=== PATIENT | male | born 1980 | race African-American/Black ===

== ENCOUNTER 2017-08-22 15:22 | Emergency (ER) | payer OTHER ==
[2017-08-22 15:29] VITALS: BP 127/85
[2017-08-22] MEDS ORDERED: HYDROCODONE/ACETAMINOPHEN 5-325 MG 6 TAB/DSPK PO PRN (16:34)
--- NOTE | 2017-08-22 16:44 | RADIOLOGY REPORT (SQ) ---
EXAM DESCRIPTION: SHOULDER LEFT 2 OR MORE VIEWS COMPLETED DATE/TIME: 08/22/2017 4:30 pm REASON FOR STUDY: fall COMPARISON: None. NUMBER OF VIEWS: Three views. TECHNIQUE: Internal rotation, external rotation, and Y view images acquired of the left shoulder. LIMITATIONS: None. FINDINGS: MINERALIZATION: Normal. BONES: No acute fracture or dislocation. No worrisome bone lesions. JOINTS: No dislocation. VISUALIZED LUNGS AND RIBS: No pneumothorax. No rib fracture. SOFT TISSUES: No radiopaque foreign body. OTHER: No other significant finding. IMPRESSION: NEGATIVE STUDY OF THE LEFT SHOULDER. NO RADIOGRAPHIC EVIDENCE OF ACUTE INJURY. TECHNICAL DOCUMENTATION: JOB ID: [id number] [employer]- All Rights Reserved
--- NOTE | 2017-08-22 17:04 | RADIOLOGY REPORT (SQ) ---
EXAM DESCRIPTION: CERV SP 3 VIEW OR LESS COMPLETED DATE/TIME: 08/22/2017 4:53 pm REASON FOR STUDY: fall from ladder 6 ft landed on the left shoulder COMPARISON: None. NUMBER OF VIEWS: Three views. TECHNIQUE: AP, lateral and odontoid radiographic images acquired of the cervical spine. LIMITATIONS: None. FINDINGS: MINERALIZATION: Normal. ALIGNMENT: Anatomic. VERTEBRAE: Trace flattening of the C5 vertebral body. No evidence of acute fracture. DISCS: Mild loss of C5/6 intervertebral disc height with small marginal osteophyte involving the infe rior endplate of C5. HARDWARE: None in the spine. SOFT TISSUES: No masses or calcifications. Lung apices clear. OTHER: No other significant finding. IMPRESSION: No evidence of acute osseous injury. Trace spondylotic change involving the C5/6 level. TECHNICAL DOCUMENTATION: JOB ID: [id number] [employer]- All Rights Reserved
--- NOTE | 2017-08-22 17:09 | RADIOLOGY REPORT (SQ) ---
EXAM DESCRIPTION: SCAPULA LEFT COMPLETED DATE/TIME: 08/22/2017 4:55 pm REASON FOR STUDY: fall from ladder 6 ft landed on the left shoulder COMPARISON: None. EXAM PARAMETERS: NUMBER OF VIEWS: One view. TECHNIQUE: Frontal and Y-view radiographic images acquired of the left scapula. LIMITATIONS: None. FINDINGS: MINERALIZATION: Normal. BONES: No acute fracture or dislocation. No worrisome bone lesions. No significant osteophytes. SOFT TISSUES: No foreign body. No soft tissue swelling. HARDWARE: None. OTHER: No other significant finding. IMPRESSION: SHOULDER: LEFT No evidence of scapular injury. TECHNICAL DOCUMENTATION: JOB ID: [id number] [employer]- All Rights Reserved
--- NOTE | 2017-08-22 17:34 | ER Document Report ---
ED Extremity Problem, Upper - General Chief Complaint: Shoulder Pain Stated Complaint: LEFT ARM INJURY Time Seen by Provider: 08/22/17 16:32 Mode of Arrival: Ambulatory Information source: Patient, Relative Notes: Patient is a 37-year-old male brought to ER by his . Patient states he has been putting up Halloween decorations all morning was standing on a 6 foot ladder while he is trying to reach out and hanging some of the decorations the ladder started the tip he fell forward landing on his left shoulder. Patient denies any loss of consciousness but states that he had a difficult time moving his arm in any direction right afterward. Also states that he had a little difficult time and feeling his arm for the first few seconds. Patient is here today complaining of left shoulder pain but denies any neck pain. He also denies any other medical problems. TRAVEL OUTSIDE OF THE [place] IN LAST 30 DAYS: No - HPI Patient complains to provider of: Left, Shoulder Onset: Just prior to arrival Where: Home Quality of pain: No pain, Cramping, Sharp, Throbbing Severity of pain: Moderate Pain Level: 4 Context: Other - Fall Arm and Shoulder (Left): 1 - Area of pain and discomfort Associated symptoms: Tingling. denies: Back pain, Chest pain/discomfort, Dizziness, Fainted, Jaw pain, Nausea, Neck pain Similar symptoms previously: No Recently seen / treated by doctor: No - Related Data Allergies/Adverse Reactions: No Known Allergies Allergy (Unverified 08/22/17 15:27) Past Medical History - General Information source: Patient, Relative - Social History Smoking Status: Never Smoker Chew tobacco use (# tins/day): No Frequency of alcohol use: Occasional Drug Abuse: None Lives with: Family Family History: None - Past Medical History Cardiac Medical History: Reports: None Pulmonary Medical History: Reports: None EENT Medical History: Reports: None Neurological Medical History: Reports: None Endocrine Medical History: Reports: None Renal/ Medical History: Denies: Hx Peritoneal Dialysis Malignancy Medical History: Reports None GI Medical History: Reports: None Skin Medical History: Reports None Psychiatric Medical History: Reports: None Traumatic Medical History: Reports: None Infectious Medical History: Reports: None Surgical Hx: Negative Review of Systems - Review of Systems Constitutional: No symptoms reported EENT: No symptoms reported Cardiovascular: No symptoms reported Respiratory: No symptoms reported Gastrointestinal: No symptoms reported Genitourinary: No symptoms reported Male Genitourinary: No symptoms reported Musculoskeletal: Joint swelling, Muscle pain, Muscle stiffness Skin: No symptoms reported Hematologic/Lymphatic: No symptoms reported Neurological/Psychological: No symptoms reported -: Yes All other systems reviewed and negative Physical Exam - Vital signs Vitals: Temp Pulse Resp BP Pulse Ox 98.1 F 72 16 127/85 H 97 08/22/17 15:28 08/22/17 15:28 08/22/17 15:28 08/22/17 15:28 08/22/17 15:28 - Notes Notes: Physical examination patient appears to be uncomfortable. - General General appearance: Alert, Other - Uncomfortable - Respiratory Respiratory status: No respiratory distress Chest status: Nontender Breath sounds: Normal. No: Rales, Rhonchi, Stridor, Wheezing Chest palpation: Normal. No: [place] frothy sputum, Purulent sputum, Subcutaneous emphysema, Sucking chest wound - Cardiovascular Rhythm: Regular Heart sounds: Normal auscultation Murmur: No - Abdominal Inspection: Normal Distension: No distension Bowel sounds: Normal Tenderness: Nontender - Back Back: Normal. No: Tender, Deformity/step-off, CVA tenderness, Vertebra tenderness, Wounds - Extremities General upper extremity: Tender. No: Normal inspection, Normal ROM General lower extremity: Tender. No: Normal inspection Shoulder: Tender, Limited ROM, Other - Examination of patient's left shoulder shows her to be no signs of abrasions or ecchymosis. He has mild tenderness to palpation on the lateral side of the shoulder but not into the upper portion of the humerus. He also has some mild tenderness along the left side trapezius where there is palpable spasm spell. There is no pain or discomfort in palpation along the scapular plate and there is no anterior rotator cuff tenderness to palpation. There is limited range of motion passively secondary to to pain and discomfort. Patient displays good cap refill in nailbeds of the left hand. He also has good ulnar and radial pulses.. No: Deformity, Dislocation Elbow: Normal, Nontender Forearm: Normal, Nontender Wrist: Normal Hand: Normal Hip: Normal - Neurological Neuro grossly intact: Yes Cognition: Normal Orientation: AAOx4 [place] Coma Scale Eye Opening: Spontaneous [place] Coma Scale Verbal: Oriented [place] Coma Scale Motor: Obeys Commands [place] Coma Scale Total: 15 Speech: Normal - Skin Skin Temperature: Cool Skin Moisture: Dry Skin Color: Normal, [place] Skin Turgor: Elastic Course - Vital Signs Vital signs: Temp Pulse Resp BP Pulse Ox 98.1 F 72 16 127/85 H 97 08/22/17 15:28 08/22/17 15:28 08/22/17 15:28 08/22/17 15:28 08/22/17 15:28 - Diagnostic Test Radiology reviewed: Image reviewed, Reports reviewed - Radiology reports of the left shoulder left scapula and cervical spine show no acute findings. This is as per read by radiology. - Transfer of Care Notes: 08/22/17 17:38 [place] is [place] I discussed with patient findings of all the x-rays he will continue to use the sling for support pain medication and [place] Discharge - Discharge Clinical Impression: Contusion of left shoulder or upper extremity, Left shoulder strain Condition: Stable Disposition: HOME, SELF-CARE Additional Instructions: Sprain Your injury is a sprain. A sprain results from stretching or tearing of the ligaments, usually from a twisting injury. The ligaments will require time and protection in order to heal properly. Many sprains are quite disabling and should be taken seriously. The usual initial treatment of sprains is cold packs, elevation, and rest of the injured area. Your physician has assessed the seriousness of your ligament injury, and has outlined a treatment plan. Understand that this treatment may change, depending on how you progress. If a re-examination was recommended, it is important that you follow up as instructed. Call the doctor any time if there is severe pain, numbness, or loss of function in the injured area. Contusion Your injury has resulted in a contusion -- a crushing of the deep tissues. No injury to important structures was detected during the physician's exam. Contusions vary in the amount of pain they cause, and in the length of time required for healing. Typically, the area will become bruised, and will remain painful to touch for two or three weeks. However, most patients are back to working and playing within a few days. After the initial period of rest and cold-packs, your symptoms (together with the doctor's recommendations) will determine how rapidly you can get back to full activity. Usually this means "do what feels okay, but don't do things that hurt." If re-examination was recommended, it's important to follow up as instructed. Call the doctor or return any time if pain increases, if swelling becomes severe, if you develop numbness or weakness in an injured extremity, or if any other alarming symptoms occur. Home and rest. Use a sling as we discussed for 3-5 days. Ice to the area 3 times a day for the next 72 hours. Avoid using any kind of moist heat or whirlpool. You can take a shower that will get hot enough long enough. Continue the medications until you can [place] return to this ER if you have any concerns or problems. Prescriptions: Hydrocodone/Acetaminophen [[place] 7.5-325 Tablet] 1 each PO QID PRN #15 tablet PRN Reason: For Pain Scale 1-2 Forms: Elevated Blood Pressure
== END 2017-08-22 17:49 | disposition home or self-care (01) ==
LOC: ER 15:22
DX: S46.912A Strain of unspecified muscle, fascia and tendon at shoulder and upper arm level, left arm, initial encounter (principal); S40.012A Contusion of left shoulder, initial encounter; M25.512 Pain in left shoulder; W19.XXXA Unspecified fall, initial encounter
CPT/HCPCS: 72040; 99283